=== PATIENT | female | born 1990 | race Caucasian/White ===

== ENCOUNTER 2019-10-03 17:48 | Emergency (ER) | payer OTHER ==
[~2019-10-03] VITALS: Ht 170.2 cm; Wt 98.0 kg
[~2019-10-03 17:48] MED LIST: AMOXICILLIN500 MG PO; AMOXICILLIN875 MG OR; BACTRIM DS1 TAB PO; BIRTH CONTROL; CEPHALEXIN500 MG PO; CIPROFLOXACIN250 MG OR; CIPROFLOXACN500 MG PO; CLINDAMYCIN2 % VA; CONCEPT OB PO; INTEGRA F PO; IRON325 MG OR; KEFLEX500 MG PO; KENALOG15 GM/TUBE EX; LABETALOL100 MG PO; LISINOPRIL10 MG PO; LORTAB 7.5 PO; LORTAB 7.57.5 MG; LORTAB5 PO; MACRODANTIN100 MG OR; METRONIDAZOL500 MG PO; NAPROSYN375 MG PO; NAPROSYN500 MG PO; NO; NO HOME MEDS; NUVARING VA; OB COMPLETE/DHA PO; PENICILLN VK500 MG PO; PRENATA8 OR; PREVACID30 M2 OR; PREVACID30 M3 PO; PROMETHAZINE HC25 MG PO; PROMETHAZINE25 M1 RE; REGLAN10 MG OR; ROBITUSSIN200 MG/10 PO; TORADOL PO; TUBERSOL5 MG/0.1 M ID; TYLENOL 500MG TAB PO; ULTRAM50 M1 PO; ULTRAM50 MG PO; ZOFRAN ODT4 MG PO; ZOFRAN ODT4 MG SL
[2019-10-03] MEDS ORDERED: AMOX/K CLAV875 M1 PO (19:21)
[2019-10-03] MEDS ORDERED: TRAMADOL HYDROC50 M1 PO (19:21)
[2019-10-03] MEDS ORDERED: BACTROBAN TOP (19:21)
[2019-10-03 19:36] VITALS: BP 146/72
== END 2019-10-03 19:36 | disposition home or self-care (01) ==
LOC: ED 17:48
DX: S51.852A Open bite of left forearm, initial encounter (principal); F17.210 Nicotine dependence, cigarettes, uncomplicated; W54.0XXA Bitten by dog, initial encounter; Y92.009 Unspecified place in unspecified non-institutional (private) residence as the place of occurrence of the external cause

== ENCOUNTER 2021-01-31 16:45 | Emergency (ER) | payer OTHER ==
[~2021-01-31 16:45] MED LIST changes: +AMOX/K CLAV875 M1 PO; +BACTROBAN TOP; +TRAMADOL HYDROC50 M1 PO
== END 2021-01-31 17:40 | disposition left against medical advice (07) | DRG 951 ==
LOC: ED 16:45 → LWOBS 17:40
DX: Z53.21 Procedure and treatment not carried out due to patient leaving prior to being seen by health care provider (principal)

== ENCOUNTER 2022-03-29 16:26 | Emergency (ER) | payer OTHER ==
[~2022-03-29] VITALS: Ht 170.2 cm; Wt 78.0 kg
[2022-03-29 16:33] VITALS: BP 140/97
[2022-03-29] MEDS ORDERED: TRAZODONE50 MG PO (16:39)
[2022-03-29] MEDS ORDERED: TRAZODONE100 MG PO (16:50)
[2022-03-29 16:52] VITALS: BP 140/97
== END 2022-03-29 17:00 | disposition home or self-care (01) ==
LOC: ED 16:26
DX: Z76.0 Encounter for issue of repeat prescription (principal); F31.9 Bipolar disorder, unspecified; F41.9 Anxiety disorder, unspecified; F17.210 Nicotine dependence, cigarettes, uncomplicated

== ENCOUNTER 2022-05-25 19:26 | Emergency (ER) | payer OTHER ==
[~2022-05-25 19:26] MED LIST changes: +TRAZODONE100 MG PO; +TRAZODONE50 MG PO
[2022-05-26] MEDS ORDERED: KEFLEX500 MG PO (08:44)
[2022-05-26] MEDS ORDERED: MONISTAT1 VA (08:44)
[2022-05-26] MEDS ORDERED: LORTAB 1010 MG PO (08:44)
== END 2022-05-25 20:33 | disposition left against medical advice (07) | DRG 951 ==
LOC: ED 19:26 → LWOBS 20:33
DX: Z53.21 Procedure and treatment not carried out due to patient leaving prior to being seen by health care provider (principal)

== ENCOUNTER 2022-05-26 07:15 | Emergency (ER) | payer OTHER ==
[~2022-05-26] VITALS: Ht 170.2 cm; Wt 82.5 kg
[2022-05-26 07:50] LABS: IMMATURE GRANULOCYTES 0.2 % (0.0-5.0); MEAN CELL VOLUME 87.2 fL CALC (80.0-100.0); MEAN CORPUSCULAR HGB 28.4 pG CALC (26.0-32.0); MEAN CORPUSCULAR HGB CONC 32.6 g/dL CAL (32.0-36.0); NEUT# 9.95 thou/uL (2.00-7.15); RED BLOOD COUNT 4.22 mill/uL (4.20-5.60); RED CELL DISTRI WIDTH 12.7 % (11.5-15.5)
[2022-05-26 07:51] LABS: HEMATOCRIT 36.8 % (37.0-47.0)
[2022-05-26 08:15] LABS: ALKALINE PHOSPHATASE 56 u/l (38-126); BUN 13 mg/dL (7-17); BUN/CREATININE RATIO 18 (12-20 (CALC)); CARBON DIOXIDE 26 mmol/l (22-30); CHLORIDE 109 mmol/l (95-108); CREATININE 0.7 mg/dL (0.5-1.0); GFR FOR AFR.AMER. > 60 ML/MIN (>=60 (CALC)); GFR OTHER RACES > 60 ML/MIN (>=60 (CALC)); SGOT/AST 25 u/l (14-36); SODIUM 141 mmol/l (137-146)
[2022-05-26 08:16] LABS: ANION GAP 10 (6-22 (CALC)); POTASSIUM 4.4 mmol/l (3.5-5.1)
[2022-05-26 08:18] LABS: ALBUMIN 3.9 g/dL (3.2-5.0); BILIRUBIN, TOTAL 0.3 mg/dL (0.0-1.4); TOTAL PROTEIN 6.4 g/dL (6.3-8.2)
[2022-05-26 08:21] LABS: URINE BILIRUBIN - DIPSTICK NEGATIVE (NEGATIVE); URINE BLOOD DIPSTICK LARGE (NEGATIVE); URINE COLOR YELLOW; URINE GLUCOSE - DIPSTICK NEGATIVE (NEGATIVE); URINE KETONE NEGATIVE (NEGATIVE); URINE PROTEIN - DIPSTICK NEGATIVE (NEG-TRACE); URINE SPECIFIC GRAVITY 1.025; URINE UROBILINOGEN - DIPSTICK 0.2 E.U./dL (0.2)
[2022-05-26 08:25] LABS: URINE LEUK ESTERASE LARGE (NEGATIVE); URINE NITRITE - DIPSTICK NEGATIVE (Negative)
[2022-05-26 08:36] LABS: URINE BACTERIA FEW hpf; URINE RBC >100 RBC/hpf (0-5); URINE SQUAMOUS EPITHELIAL CELL FEW EPI/hpf (0-FEW)
[2022-05-26] MEDS ORDERED: LORTAB 1010 MG PO (08:44)
[2022-05-26] MEDS ORDERED: KEFLEX500 MG PO (08:44)
[2022-05-26] MEDS ORDERED: MONISTAT1 VA (08:44)
[2022-05-26 09:17] VITALS: BP 124/80
== END 2022-05-26 09:39 | disposition home or self-care (01) ==
LOC: ED 07:15
PROVIDERS: Emergency Medicine
DX: N76.0 Acute vaginitis (principal); N39.0 Urinary tract infection, site not specified; F31.9 Bipolar disorder, unspecified; F41.9 Anxiety disorder, unspecified; F17.210 Nicotine dependence, cigarettes, uncomplicated

== ENCOUNTER 2022-12-01 09:05 | Emergency (ER) | payer OTHER ==
[~2022-12-01] VITALS: Ht 170.2 cm; Wt 75.0 kg
[~2022-12-01 09:05] MED LIST changes: +LORTAB 1010 MG PO; +MONISTAT1 VA
[2022-12-01] MEDS ORDERED: LAMICTAL XR250 MG PO (09:24)
[2022-12-01] MEDS ORDERED: VISTARIL 50MG C50 M1 PO (09:25)
[2022-12-01 09:55] LABS: URINE BILIRUBIN - DIPSTICK NEGATIVE (NEGATIVE); URINE BLOOD DIPSTICK SMALL (NEGATIVE); URINE COLOR YELLOW; URINE GLUCOSE - DIPSTICK NEGATIVE (NEGATIVE); URINE KETONE NEGATIVE (NEGATIVE); URINE LEUK ESTERASE NEGATIVE (NEGATIVE); URINE PROTEIN - DIPSTICK NEGATIVE (NEG-TRACE); URINE SPECIFIC GRAVITY 1.025; URINE UROBILINOGEN - DIPSTICK 0.2 E.U./dL (0.2)
[2022-12-01 10:00] LABS: URINE NITRITE - DIPSTICK NEGATIVE (Negative)
[2022-12-01 10:03] LABS: URINE EPITHELIAL CELLS FEW EPI/hpf (0-FEW); URINE RBC 0-2 RBC/hpf (0-5)
[2022-12-01 10:10] LABS: BASO% 0.4 % (0-3); EOS% 1.3 % (0-8); HEMATOCRIT 38.5 % (37.0-47.0); HEMOGLOBIN 13.2 g/dl (12.0-16.0); IMMATURE GRANULOCYTES 0.1 % (0.0-5.0); LYMPH% 22.5 % (15-41); MEAN CELL VOLUME 86.9 fL CALC (80.0-100.0); MEAN CORPUSCULAR HGB 29.8 pG CALC (26.0-32.0); MEAN CORPUSCULAR HGB CONC 34.3 g/dL CAL (32.0-36.0); MONO% 6.5 % (2-13); NEUT# 4.92 thou/uL (2.00-7.15); NEUT% 69.2 % (42-76); RED BLOOD COUNT 4.43 mill/uL (4.20-5.60); RED CELL DISTRI WIDTH 12.9 % (11.5-15.5)
[2022-12-01 10:46] LABS: ALKALINE PHOSPHATASE 61 u/l (38-126); ANION GAP 10 (6-22 (CALC)); BUN 12 mg/dL (7-17); BUN/CREATININE RATIO 16 (12-20 (CALC)); CARBON DIOXIDE 28 mmol/l (22-30); CHLORIDE 107 mmol/l (95-108); CREATININE 0.7 mg/dL (0.5-1.0); GFR FOR AFR.AMER. > 60 ML/MIN (>=60 (CALC)); GFR OTHER RACES > 60 ML/MIN (>=60 (CALC)); LIPASE 80 u/l (23-300); POTASSIUM 4.2 mmol/l (3.5-5.1); SGOT/AST 25 u/l (14-36); SODIUM 140 mmol/l (137-146); TOTAL PROTEIN 7.5 g/dL (6.3-8.2)
[2022-12-01 10:49] LABS: ALBUMIN 4.9 g/dL (3.2-5.0); BILIRUBIN, TOTAL 0.6 mg/dL (0.0-1.4)
[2022-12-01] MEDS ORDERED: CELEBREX100 M1 PO (14:48)
[2022-12-01 15:13] VITALS: BP 136/78
== END 2022-12-01 15:20 | disposition home or self-care (01) ==
LOC: ED 09:05
PROVIDERS: Emergency Medicine
DX: R10.9 Unspecified abdominal pain (principal); F17.210 Nicotine dependence, cigarettes, uncomplicated

== ENCOUNTER 2023-01-24 15:57 | Emergency (ER) | payer OTHER ==
[2023-01-24] VITALS (8 sets, daily range): BP systolic 110–138; BP diastolic 69–87
[~2023-01-24] VITALS: Ht 170.2 cm; Wt 70.3 kg
[~2023-01-24 15:57] MED LIST changes: +CELEBREX100 M1 PO; +LAMICTAL XR250 MG PO; +VISTARIL 50MG C50 M1 PO
[2023-01-24] MEDS ORDERED: NAPROXEN500 MG PO (17:41)
== END 2023-01-24 18:02 | disposition home or self-care (01) ==
LOC: ED 15:57
DX: S80.02XA Contusion of left knee, initial encounter (principal); S80.01XA Contusion of right knee, initial encounter; F31.9 Bipolar disorder, unspecified; F41.9 Anxiety disorder, unspecified; F17.200 Nicotine dependence, unspecified, uncomplicated; W10.9XXA Fall (on) (from) unspecified stairs and steps, initial encounter; Y92.009 Unspecified place in unspecified non-institutional (private) residence as the place of occurrence of the external cause

== ENCOUNTER 2023-07-05 13:06 | Emergency (ER) | payer SELFPAY ==
[~2023-07-05] VITALS: Ht 170.2 cm; Wt 79.4 kg
[2023-07-05] VITALS (8 sets, daily range): BP systolic 111–128; BP diastolic 72–87
[~2023-07-05 13:06] MED LIST changes: +NAPROXEN500 MG PO
[2023-07-05] MEDS ORDERED: AMOX/K CLAV875 M1 PO (14:23)
[2023-07-05] MEDS ORDERED: ZYRTEC10 MG PO (14:23)
[2023-07-05] MEDS ORDERED: MEDDOSEPAK PO (14:23)
== END 2023-07-05 14:40 | disposition home or self-care (01) | DRG 153 ==
LOC: ED 13:06
DX: J32.9 Chronic sinusitis, unspecified (principal); F31.9 Bipolar disorder, unspecified; F41.9 Anxiety disorder, unspecified; F17.200 Nicotine dependence, unspecified, uncomplicated; Z20.822 Contact with and (suspected) exposure to COVID-19

== ENCOUNTER 2023-07-15 08:05 | Emergency (ER) | payer SELFPAY ==
[~2023-07-15] VITALS: Ht 170.2 cm; Wt 78.0 kg
[2023-07-15] VITALS (16 sets, daily range): BP systolic 97–132; BP diastolic 62–84
[~2023-07-15 08:05] MED LIST changes: +MEDDOSEPAK PO; +ZYRTEC10 MG PO
[2023-07-15 09:22] LABS: ALKALINE PHOSPHATASE 62 u/l (38-126); ANION GAP 11 (6-22 (CALC)); BILIRUBIN, TOTAL 0.4 mg/dL (0.02-1.3); BUN 15 mg/dL (7-17); BUN/CREATININE RATIO 16 (12-20 (CALC)); CARBON DIOXIDE 26 mmol/l (22-30); CHLORIDE 107 mmol/l (95-108); GFR FOR AFR.AMER. > 60 ML/MIN (>=60 (CALC)); GFR OTHER RACES > 60 ML/MIN (>=60 (CALC)); POTASSIUM 4.3 mmol/l (3.5-5.1); SODIUM 139 mmol/l (137-146); TOTAL PROTEIN 6.7 g/dL (6.3-8.2)
[2023-07-15 09:23] LABS: BASO% 0.4 % (0-3); EOS% 3.2 % (0-8); HEMATOCRIT 36.5 % (37.0-47.0); HEMOGLOBIN 12.2 g/dl (12.0-16.0); IMMATURE GRANULOCYTES 0.2 % (0.0-5.0); LYMPH% 30.6 % (15-41); MEAN CELL VOLUME 87.7 fL CALC (80.0-100.0); MEAN CORPUSCULAR HGB 29.3 pG CALC (26.0-32.0); MEAN CORPUSCULAR HGB CONC 33.4 g/dL CAL (32.0-36.0); MONO% 8.2 % (2-13); NEUT# 3.08 thou/uL (2.00-7.15); NEUT% 57.4 % (42-76); RED BLOOD COUNT 4.16 mill/uL (4.20-5.60); RED CELL DISTRI WIDTH 12.4 % (11.5-15.5); SGOT/AST 22 u/l (14-36)
[2023-07-15] MEDS ORDERED: PROVERA10 MG PO (11:19)
[2023-07-15 12:28] LABS: URINE BILIRUBIN - DIPSTICK Negative (NEGATIVE); URINE BLOOD DIPSTICK Large (NEGATIVE); URINE GLUCOSE - DIPSTICK Negative (NEGATIVE); URINE KETONE Negative (NEGATIVE); URINE LEUK ESTERASE Negative (NEGATIVE); URINE NITRITE - DIPSTICK Positive (Negative); URINE PROTEIN - DIPSTICK 100 mg/dL (NEG-TRACE)
[2023-07-15 12:30] LABS: URINE COLOR Amber
[2023-07-15 12:36] LABS: URINE BACTERIA MODERATE hpf; URINE EPITHELIAL CELLS MODERATE EPI/hpf (0-FEW); URINE RBC 50-100 RBC/hpf (0-5)
[2023-07-15] MEDS ORDERED: BACTRIM DS1 TAB PO (13:04)
== END 2023-07-15 13:17 | disposition home or self-care (01) | DRG 760 ==
LOC: ED 08:05
PROVIDERS: Family Medicine
DX: N93.8 Other specified abnormal uterine and vaginal bleeding (principal); N39.0 Urinary tract infection, site not specified; B96.1 Klebsiella pneumoniae [K. pneumoniae] as the cause of diseases classified elsewhere; D25.9 Leiomyoma of uterus, unspecified; F41.9 Anxiety disorder, unspecified; F31.9 Bipolar disorder, unspecified; F17.200 Nicotine dependence, unspecified, uncomplicated
CPT/HCPCS: J1410

== ENCOUNTER 2024-01-03 03:44 | Emergency (ER) | payer MEDICAID ==
[~2024-01-03] VITALS: Ht 170.2 cm; Wt 79.8 kg
[~2024-01-03 03:44] MED LIST changes: +PROVERA10 MG PO
[2024-01-03 05:01] VITALS: BP 131/93
== END 2024-01-03 05:01 | disposition left against medical advice (07) | DRG 951 ==
LOC: ED 03:44 → LWOBS 05:01
DX: Z53.21 Procedure and treatment not carried out due to patient leaving prior to being seen by health care provider (principal)